=== PATIENT | female | born 1980 | race Caucasian/White ===

== ENCOUNTER → 2017-11-27 | Outpatient (CLI) | payer OTHER ==
[~2017-11-27] MED LIST: FEXO1TAB46 PO; FLUT0.0529 NAE; PRENTAB26 PO; SERT25TA PO; SERT50TA PO
--- NOTE | 2017-11-27 16:13 | DIAGNOSTIC IMAGING REPORT ---
L ANKLE MIN 3 VIEWS ROUTINE HISTORY: 36 years-old Female L ANKLE PAIN acute left ankle pain COMPARISON: None available TECHNIQUE: 3 views of the left ankle FINDINGS: No acute fracture, subluxation or osteochondral defect. Mild soft tissue swelling most pronounced medially without opaque foreign body. IMPRESSION: Mild soft tissue swelling without acute fracture. The above report was generated using voice recognition software. It may contain grammatical, syntax or spelling errors. Electronically signed by: Tong Wilde M.D. 11/27/2017 4:12 PM Dictated Date/Time: 11/27/2017 4:10 PM
== END | disposition home or self-care (01) ==
LOC: C.RAD1850 15:55
PROVIDERS: ATTEND Family Medicine
DX: M25.572 Pain in left ankle and joints of left foot (principal)

== ENCOUNTER → 2017-12-15 | Outpatient (CLI) | payer OTHER | END | disposition home or self-care (01) | LOC: C.PAPS 16:04 | PROVIDERS: ATTEND Physician Assistant | DX: Z12.4 Encounter for screening for malignant neoplasm of cervix (principal); Z11.51 Encounter for screening for human papillomavirus (HPV) ==